=== PATIENT | female | born 1965 | race Caucasian/White ===

== ENCOUNTER 2019-09-09 20:21 | Emergency (ER) | payer MEDICARE ==
[~2019-09-09] VITALS: Ht 152.4 cm; Wt 76.2 kg
== END 2019-09-09 22:09 | disposition home or self-care (01) ==
LOC: ER 20:21
DX: G40.401 Other generalized epilepsy and epileptic syndromes, not intractable, with status epilepticus (principal); Q90.9 Down syndrome, unspecified